=== PATIENT | male | born 1985 | race Caucasian/White ===

== ENCOUNTER 2018-08-16 16:48 | Emergency (ER) | payer MEDICAID, OTHER ==
[2018-08-16 16:54] VITALS: BP 152/74
--- NOTE | 2018-08-16 17:02 | EDPHY ---
H & P Stated Complaint: benzo withdrawal last used 08/12 Time Seen by Provider: 08/16/18 16:54 HPI/ROS: CHIEF COMPLAINT: Benzodiazepine withdrawal HISTORY OF PRESENT ILLNESS: Patient presents to the ED with symptoms of benzodiazepine withdrawal. He reports he had been using 3-4 mg of benzodiazepines on a daily basis. He stopped using these medications on the August 12. He is developed symptoms of severe withdrawal with anxiety, restlessness and agitation. The patient presents to the ED requesting benzodiazepine medications and a plan for a tapered withdrawal. The patient denies any suicidal or homicidal ideation. The patient is accompanied by his sister who will administer the patient's medications appropriately. The patient has no acute medical complaints. REVIEW OF SYSTEMS: A comprehensive 10 point review of systems is otherwise negative aside from elements mentioned in the history of present illness. Source: Patient - Personal History Current Tetanus Diphtheria and Acellular Pertussis (TDAP): Yes - Medical/Surgical History Hx Asthma: Yes Hx Chronic Respiratory Disease: No Hx Diabetes: No Hx Cardiac Disease: No Hx Renal Disease: No Hx Cirrhosis: No Hx Alcoholism: Yes Hx HIV/AIDS: No Hx Splenectomy or Spleen Trauma: No Other PMH: asthma/etoh sober sice 2007 - Social History Smoking Status: Never smoked - Physical Exam Exam: General Appearance: Alert, anxious, slightly tremulous Eyes: Pupils equal and round no pallor or injection ENT, Mouth: Mucous membranes moist Respiratory: There are no retractions, lungs are clear to auscultation Cardiovascular: Regular rate and rhythm Gastrointestinal: Abdomen is soft and nontender, no masses, bowel sounds normal Neurological: 5/5 strength all 4 extremities Skin: Warm and dry, no rashes Musculoskeletal: Neck is supple nontender Extremities: symmetrical, full range of motion Psychiatric: Patient is oriented X 3, there is no agitation, denies suicidal or homicidal ideation, normal thought process, normal speech pattern Constitutional: Initial Vital Signs Temperature (C) 36.8 C 08/16/18 16:51 Heart Rate 71 08/16/18 16:51 Respiratory Rate 17 08/16/18 16:51 Blood Pressure 152/74 H 08/16/18 16:51 O2 Sat (%) 97 08/16/18 16:51 O2 Delivery Mode Room Air Allergies/Adverse Reactions: ciprofloxacin [From Cipro] Allergy (Verified 08/16/18 16:50) Penicillins Allergy (Verified 08/16/18 16:49) Home Medications: Medication Instructions Recorded Albuterol 08/16/18 LORazepam [Ativan] 1 mg PO BID PRN #30 tablet 08/16/18 Medical Decision Making ED Course/Re-evaluation: The patient was given 1 mg of oral Ativan. The patient has been paced on a tapering dose of Ativan over the next 20 days. The patient's prescription has been given to his sister who will help the patient in administering the proper dose of Ativan. The patient will follow up with his primary care provider at [facility]. Differential Diagnosis: Differential diagnosis considered includes benzodiazepine withdrawal, benzodiazepine abuse - Data Points Medications Given: Discontinued Medications Lorazepam (Ativan) 1 mg PO EDNOW ONE Stop: 08/16/18 17:13 Last Admin: 08/16/18 17:20 Dose: 1 mg Departure - Departure Disposition: Home, Routine, Self-Care Clinical Impression: Benzodiazepine abuse Referrals: MANNIE ESTES [Primary Care Provider] - As per Instructions Prescriptions: LORazepam [Ativan] 1 mg PO BID PRN #30 tablet PRN Reason: Anxiety
[2018-08-16] MEDS ORDERED: LORazepam 1 MG TAB PO ONE (17:12)
== END 2018-08-16 17:39 | disposition home or self-care (01) ==
DX: F13.230 Sedative, hypnotic or anxiolytic dependence with withdrawal, uncomplicated (principal)